=== PATIENT | male | born 1955 | race Caucasian/White ===

== ENCOUNTER → 2016-08-08 | Emergency (ER) | payer BC, OTHER ==
[~2016-08-08] MED LIST: Adacel (T-DAP) 0.5 ML VIAL ONE; Ciprofloxacin 500 MG TAB ONE; Lidocaine 1% 20 ML MDV ONE; Triple Antibiotic Oint 1 GM Packet ONE
== END ==
LOC: BURERS 15:31
DX: S01.312A Laceration without foreign body of left ear, initial encounter (principal); M10.9 Gout, unspecified; I10 Essential (primary) hypertension; Z79.899 Other long term (current) drug therapy; W18.30XA Fall on same level, unspecified, initial encounter
CPT/HCPCS: 12013; 90471; 90715; J2001

== ENCOUNTER 2018-10-09 20:33 | Emergency (ER) | payer BC ==
[2018-10-09] MEDS ORDERED: Aspirin Chewable 81 MG TAB ONE (20:50)
[2018-10-09 21:00] LABS: #Basophils 0.1 thou/uL (0.0-0.2); #Eosinphils 0.3 thou/uL (0.0-0.7); #Lymphocytes 1.7 thou/uL (1.20-3.40); #Monocytes 0.9 thou/uL (0.11-0.59); #Neutrophils 4.2 thou/uL (1.40-6.50); %Basophils 1.7 % (0.0-1.0); %Eosinophils 3.5 % (0.0-10.0); %Lymphocytes 24.2 % (21.0-51.0); %Monocytes 11.9 % (0.0-10.0); %Neutrophils 58.7 % (42.0-75.0); Hemoglobin 14.6 g/dL (14.0-18.0); Mean Corpuscular Hemoglobin 30.1 pg (27.0-31.0); Mean Corpuscular Volume 91.3 fL (78.0-98.0); Mean Platelet Volume 9.9 fL (7.4-10.4); Platelet Count 174 thou/uL (130-400); RBC Distribution Width 13.4 % (11.5-14.5); Red Blood Cell (RBC) Count 4.84 mill/uL (4.70-6.10); White Blood Cell (WBC) Count 7.1 thou/uL (4.8-10.8)
[2018-10-09 21:14] LABS: ALT (SGPT) 24 U/L (8-55); AST (SGOT) 27 U/L (5-34); Albumin 4.4 g/dL (3.4-4.8); Alkaline Phosphatase 70 U/L (40-150); Anion Gap 17 mmol/L (10-20); BUN (Urea Nitrogen) 20 mg/dL (8.4-25.7); Bilirubin, Total 0.5 mg/dL (0.2-1.2); CK (CPK) 517 U/L (30-200); Calc. Creatinine Clearance 0 mL/min (70-130); Calcium 10.4 mg/dL (7.8-10.44); Carbon Dioxide 26 mmol/L (23-31); Chloride 104 mmol/L (98-107); Estimated GFR-MDRD 77; Globulin 3.8 g/dL (2.4-3.5); Glucose 137 mg/dL (80-115); Potassium 3.7 mmol/L (3.5-5.1); Protein, Total 8.2 g/dL (5.8-8.1); Sodium 143 mmol/L (136-145)
--- NOTE | 2018-10-09 21:27 | RAD ---
XR Chest 1 View Portable HISTORY: Chest pain COMPARISON: 05/10/2018 study FINDINGS: Heart size is slightly enlarged with a pacemaker present. The lungs are clear of infiltrate s. There are no signs of failure. IMPRESSION: No acute findings.
[2018-10-09] MEDS ORDERED: Ketorolac Tromethamine 30 MG/ML VIAL ONE (23:58)
== END 2018-10-10 00:03 | disposition home or self-care (01) ==
LOC: BURERS 20:33
DX: R07.2 Precordial pain (principal); M10.9 Gout, unspecified; I10 Essential (primary) hypertension; G47.33 Obstructive sleep apnea (adult) (pediatric); Z79.899 Other long term (current) drug therapy; Z79.82 Long term (current) use of aspirin
CPT/HCPCS: 36415; 71045; 80053; 82550; 84484; 85025; 93005; 96374; J1885

== ENCOUNTER 2020-09-25 14:54 | Outpatient (CLI) | payer BC | END 2020-09-25 14:55 | disposition home or self-care (01) | LOC: BURRAD 14:54 | PROVIDERS: ATTEND Podiatrist Foot & Ankle Surgery | DX: M25.571 Pain in right ankle and joints of right foot (principal); M19.071 Primary osteoarthritis, right ankle and foot; M77.31 Calcaneal spur, right foot ==

== ENCOUNTER 2020-11-13 20:51 | Emergency (ER) | payer BC ==
[2020-11-13] MEDS ORDERED: Clindamycin 150 MG CAP ONE (21:26)
== END 2020-11-13 21:30 | disposition home or self-care (01) ==
LOC: BURERS 20:51
DX: L02.413 Cutaneous abscess of right upper limb (principal); I10 Essential (primary) hypertension; M10.9 Gout, unspecified; G47.33 Obstructive sleep apnea (adult) (pediatric); Z79.82 Long term (current) use of aspirin; Z79.899 Other long term (current) drug therapy
CPT/HCPCS: 99282